=== PATIENT | male | born 1970 | race Caucasian/White ===

== ENCOUNTER 2020-03-12 19:08 | Inpatient (IN) ==
[2020-03-12] MEDS ORDERED: Naloxone 0.4 MG/ML INJ IVP PRN (21:28)
[2020-03-12] MEDS ORDERED: Artificial Tears SOLN 15 ML BOTTLE BOTH EYES PRN (21:38)
[2020-03-12] MEDS: Midazolam HCl 50 MG/100 ML IV.SOLN IVC SCH (21:45)
[2020-03-12] MEDS: Dexmedetomidine HCl 400 MCG/100 ML MLS IVC SCH ×2 (21:48→23:40)
[2020-03-12] MEDS ORDERED: Dextrose Gel 15 GM/37.5 ML TUBE PO PRN ×2 (22:04)
[2020-03-12] MEDS ORDERED: *HR* Dextrose 50 % in Water (Vial) 50 ML VIAL IVP PRN (22:04)
[2020-03-12] MEDS ORDERED: D5% in Water 1,000 ML IVC PRN (22:04)
[2020-03-12 22:07] LABS: ABG Base Excess 0 mEq/L (-2 to 3); ABG HCO3 28 mEq/L (21-27); ABG Oxygen Saturation 100 % (95-98); ABG PCO2 60 mmHg (35-45); ABG PH 7.28 pH Units (7.32-7.45); ABG PO2 386 mmHg (85-104); ABG TCO2 30 mEq/L (20-26); Blood Gas VT 550 cc
[2020-03-13] MEDS: FentaNYL (PF) 1,000 MCG/100 ML IV.SOLN IVC SCH ×4 (00:13→19:15)
[2020-03-13] MEDS: Artificial Tears SOLN 15 ML BOTTLE BOTH EYES SCH ×6 (00:15→19:57)
[2020-03-13] MEDS: Piperacillin/Tazobactam 3.375 GM in 0.9 % Sodium Chloride Mini Bag 100 ML IVPB SCH ×3 (00:15→16:18)
[2020-03-13] MEDS: *HR* Heparin 5,000 UNIT/ML VIAL SQ SCH ×3 (00:16→16:18)
[2020-03-13] MEDS: Midazolam HCl 50 MG/100 ML IV.SOLN IVC SCH ×6 (01:30→21:43)
[2020-03-13] MEDS: Dexmedetomidine HCl 400 MCG/100 ML MLS IVC SCH ×9 (02:03→22:08)
[2020-03-13 04:09] LABS: Basophils % 0.2 %; Eosinophils % 0.1 %; Hematocrit 38.8 % (37.5-50.1); Hemoglobin 12.2 g/dL (12.9-16.9); Immature Granulocytes % 0.4 % (0-4); Lymphocytes % 13.5 %; Mean Corpuscular HGB Conc 31.4 g/dL (31.6-35.5); Mean Corpuscular Hemoglobin 26.8 pg (28.0-33.3); Mean Corpuscular Volume 85.3 fL (83.0-100.0); Monocytes # 1.3 K/mcL (0.0-1.3); Monocytes % 8.6 %; Neutrophils # 11.4 K/mcL (1.6-8.9); Platelet Count 274 K/mcL (140-400); Red Blood Count 4.55 M/mcL (4.19-5.50); Red Cell Distribution Width 13.9 % (11.5-14.5); Segmented Neutrophils % 77.2 %; White Blood Count 14.8 K/mcL (4.3-11.1)
[2020-03-13 04:34] LABS: INR 1.2; Prothrombin Time 14.1 Seconds (9.4-12.1)
[2020-03-13 04:38] LABS: ABG Base Excess 1 mEq/L (-2 to 3); ABG HCO3 26 mEq/L (21-27); ABG Oxygen Saturation 97 % (95-98); ABG PCO2 43 mmHg (35-45); ABG PH 7.39 pH Units (7.32-7.45); ABG PO2 91 mmHg (85-104); ABG TCO2 28 mEq/L (20-26); Blood Gas VT 550 cc
[2020-03-13] MEDS: Chlorhexidine Rinse 15 ML MOUTHWASH MM SCH ×2 (07:54→19:57)
[2020-03-13] MEDS: Pantoprazole 40 MG VIAL IVP SCH (07:55)
[2020-03-13] MEDS: Norepinephrine 4 MG/254 ML IV.SOLN IVC SCH ×2 (13:13→19:32)
[2020-03-14] MEDS: Artificial Tears SOLN 15 ML BOTTLE BOTH EYES SCH ×7 (00:05→23:02)
[2020-03-14] MEDS: *HR* Heparin 5,000 UNIT/ML VIAL SQ SCH ×4 (00:05→23:02)
[2020-03-14] MEDS: Piperacillin/Tazobactam 3.375 GM in 0.9 % Sodium Chloride Mini Bag 100 ML IVPB SCH ×2 (00:06→07:18)
[2020-03-14] MEDS: FentaNYL (PF) 1,000 MCG/100 ML IV.SOLN IVC SCH ×2 (02:45→19:25)
[2020-03-14] MEDS: Dexmedetomidine HCl 400 MCG/100 ML MLS IVC SCH ×5 (02:46→20:38)
[2020-03-14 03:58] LABS: Basophils % 0.4 %; Eosinophils % 0.4 %; Hematocrit 39.8 % (37.5-50.1); Hemoglobin 12.5 g/dL (12.9-16.9); Immature Granulocytes % 0.3 % (0-4); Lymphocytes # 2.8 K/mcL (0.6-4.6); Lymphocytes % 29.3 %; Mean Corpuscular HGB Conc 31.4 g/dL (31.6-35.5); Mean Platelet Volume 9.1 fL (9.4-12.4); Monocytes % 9.9 %; Neutrophils # 5.7 K/mcL (1.6-8.9); Platelet Count 235 K/mcL (140-400); Red Blood Count 4.63 M/mcL (4.19-5.50); Red Cell Distribution Width 14.3 % (11.5-14.5); Segmented Neutrophils % 59.7 %; White Blood Count 9.6 K/mcL (4.3-11.1)
[2020-03-14 04:18] LABS: BUN/Creatinine Ratio 11 (6-26); Blood Urea Nitrogen 11 mg/dL (6-20); Calcium 8.6 mg/dL (8.6-10.3); Carbon Dioxide 25 mEq/L (23-29); Chloride 107 mEq/L (98-107); Glucose 127 mg/dL (70-105); Osmolality,Calculated 287 (280-300); Potassium 3.4 mEq/L (3.5-5.1); Sodium 138 mEq/L (136-145); eGFR For African Americans > 60 (> 60); eGFR For Non-African Americans > 60 (> 60)
[2020-03-14] MEDS: Midazolam HCl 50 MG/100 ML IV.SOLN IVC SCH (05:05)
[2020-03-14 05:20] LABS: ABG Base Excess 2 mEq/L (-2 to 3); ABG HCO3 26 mEq/L (21-27); ABG Oxygen Saturation 98 % (95-98); ABG PCO2 38 mmHg (35-45); ABG PH 7.44 pH Units (7.32-7.45); ABG PO2 95 mmHg (85-104); ABG TCO2 27 mEq/L (20-26); Blood Gas Modality ASSIST CONTROL; Blood Gas VT 550 cc
[2020-03-14] MEDS: Potassium Chloride 40 MEQ/200 ML BAG IVPB PRN (05:30)
[2020-03-14] MEDS: Chlorhexidine Rinse 15 ML MOUTHWASH MM SCH ×2 (07:18→19:33)
[2020-03-14] MEDS: Pantoprazole 40 MG VIAL IVP SCH (07:18)
[2020-03-14] MEDS ORDERED: Ringers Solution, Lactated 1,000 ML ONE (13:35)
[2020-03-14] MEDS ORDERED: Ringers Solution, Lactated 500 ML IVC ONE (13:40)
[2020-03-14] MEDS: Ampicillin/Sulbactam 3,000 MG in 0.9 % Sodium Chloride Mini Bag 100 ML IVPB SCH ×2 (17:59→23:02)
[2020-03-14] MEDS: Norepinephrine 4 MG/254 ML IV.SOLN IVC SCH (19:31)
[2020-03-15] MEDS: Dexmedetomidine HCl 400 MCG/100 ML MLS IVC SCH ×6 (01:22→23:47)
[2020-03-15] MEDS: FentaNYL (PF) 1,000 MCG/100 ML IV.SOLN IVC SCH ×2 (03:00→16:37)
[2020-03-15] MEDS: Artificial Tears SOLN 15 ML BOTTLE BOTH EYES SCH ×6 (03:29→23:08)
[2020-03-15 03:40] LABS: Basophils # 0.1 K/mcL (0.0-0.2); Basophils % 0.7 %; Eosinophils # 0.1 K/mcL (0.0-0.6); Eosinophils % 1.1 %; Hemoglobin 12.2 g/dL (12.9-16.9); Immature Granulocytes % 0.4 % (0-4); Mean Corpuscular HGB Conc 32.1 g/dL (31.6-35.5); Mean Corpuscular Hemoglobin 27.7 pg (28.0-33.3); Mean Corpuscular Volume 86.2 fL (83.0-100.0); Mean Platelet Volume 9.3 fL (9.4-12.4); Monocytes # 0.9 K/mcL (0.0-1.3); Monocytes % 11.7 %; Neutrophils # 4.6 K/mcL (1.6-8.9); Platelet Count 247 K/mcL (140-400); Red Blood Count 4.41 M/mcL (4.19-5.50); Segmented Neutrophils % 60.1 %; White Blood Count 7.6 K/mcL (4.3-11.1)
[2020-03-15 03:51] LABS: Potassium 3.4 mEq/L (3.5-5.1)
[2020-03-15] MEDS: Potassium Chloride 40 MEQ/200 ML BAG IVPB PRN (04:37)
[2020-03-15 04:42] LABS: ABG Base Excess 0 mEq/L (-2 to 3); ABG HCO3 24 mEq/L (21-27); ABG Oxygen Saturation 98 % (95-98); ABG PCO2 36 mmHg (35-45); ABG PH 7.43 pH Units (7.32-7.45); ABG PO2 95 mmHg (85-104); ABG TCO2 25 mEq/L (20-26); Blood Gas Modality ASSIST CONTROL; Blood Gas VT 550 cc
[2020-03-15 05:04] LABS: BUN/Creatinine Ratio 15 (6-26); Blood Urea Nitrogen 11 mg/dL (6-20); Carbon Dioxide 25 mEq/L (23-29); Chloride 107 mEq/L (98-107); Glucose 126 mg/dL (70-105); Osmolality,Calculated 285 (280-300); Potassium 3.5 mEq/L (3.5-5.1); Sodium 137 mEq/L (136-145); eGFR For African Americans > 60 (> 60); eGFR For Non-African Americans > 60 (> 60)
[2020-03-15] MEDS: Ampicillin/Sulbactam 3,000 MG in 0.9 % Sodium Chloride Mini Bag 100 ML IVPB SCH ×4 (06:26→23:07)
[2020-03-15] MEDS: *HR* Heparin 5,000 UNIT/ML VIAL SQ SCH ×3 (08:29→23:08)
[2020-03-15] MEDS: Pantoprazole 40 MG VIAL IVP SCH (08:29)
[2020-03-15] MEDS: Chlorhexidine Rinse 15 ML MOUTHWASH MM SCH ×2 (08:29→20:21)
[2020-03-15] MEDS: Norepinephrine 4 MG/254 ML IV.SOLN IVC SCH (19:24)
[2020-03-16] MEDS: Dexmedetomidine HCl 400 MCG/100 ML MLS IVC SCH ×6 (02:13→23:03)
[2020-03-16] MEDS: FentaNYL (PF) 1,000 MCG/100 ML IV.SOLN IVC SCH ×2 (03:05→13:00)
[2020-03-16] MEDS: Artificial Tears SOLN 15 ML BOTTLE BOTH EYES SCH ×7 (03:06→23:07)
[2020-03-16 03:48] LABS: Basophils % 0.4 %; Eosinophils # 0.1 K/mcL (0.0-0.6); Eosinophils % 1.1 %; Hematocrit 36.1 % (37.5-50.1); Hemoglobin 11.4 g/dL (12.9-16.9); Immature Granulocytes % 0.4 % (0-4); Lymphocytes # 2.6 K/mcL (0.6-4.6); Lymphocytes % 31.3 %; Mean Corpuscular HGB Conc 31.6 g/dL (31.6-35.5); Mean Corpuscular Hemoglobin 27.2 pg (28.0-33.3); Mean Corpuscular Volume 86.2 fL (83.0-100.0); Mean Platelet Volume 9.6 fL (9.4-12.4); Monocytes # 0.9 K/mcL (0.0-1.3); Monocytes % 10.4 %; Neutrophils # 4.7 K/mcL (1.6-8.9); Platelet Count 269 K/mcL (140-400); Red Blood Count 4.19 M/mcL (4.19-5.50); Red Cell Distribution Width 14.1 % (11.5-14.5); Segmented Neutrophils % 56.4 %; White Blood Count 8.4 K/mcL (4.3-11.1)
[2020-03-16 03:58] LABS: BUN/Creatinine Ratio 15 (6-26); Blood Urea Nitrogen 11 mg/dL (6-20); Calcium 8.2 mg/dL (8.6-10.3); Carbon Dioxide 23 mEq/L (23-29); Chloride 106 mEq/L (98-107); Glucose 178 mg/dL (70-105); Osmolality,Calculated 284 (280-300); Potassium 3.6 mEq/L (3.5-5.1); Sodium 135 mEq/L (136-145); eGFR For African Americans > 60 (> 60); eGFR For Non-African Americans > 60 (> 60)
[2020-03-16 04:19] LABS: ABG Base Excess -1 mEq/L (-2 to 3); ABG HCO3 24 mEq/L (21-27); ABG Oxygen Saturation 96 % (95-98); ABG PCO2 39 mmHg (35-45); ABG PO2 85 mmHg (85-104); ABG TCO2 25 mEq/L (20-26); Blood Gas Modality ASSIST CONTROL; Blood Gas VT 550 cc
[2020-03-16] MEDS: Ampicillin/Sulbactam 3,000 MG in 0.9 % Sodium Chloride Mini Bag 100 ML IVPB SCH (05:04)
[2020-03-16] MEDS: Potassium Chloride 40 MEQ/200 ML BAG IVPB PRN (05:06)
[2020-03-16] MEDS: Chlorhexidine Rinse 15 ML MOUTHWASH MM SCH ×2 (07:50→19:17)
[2020-03-16] MEDS: *HR* Heparin 5,000 UNIT/ML VIAL SQ SCH ×3 (07:50→23:03)
[2020-03-16] MEDS: Pantoprazole 40 MG VIAL IVP SCH (07:50)
[2020-03-16] MEDS ORDERED: Furosemide 40 MG/4 ML VIAL IVP ONE (16:21)
[2020-03-16] MEDS: Norepinephrine 4 MG/254 ML IV.SOLN IVC SCH (19:17)
[2020-03-17 03:23] LABS: Basophils # 0.1 K/mcL (0.0-0.2); Basophils % 0.5 %; Eosinophils # 0.2 K/mcL (0.0-0.6); Eosinophils % 1.6 %; Hematocrit 36.8 % (37.5-50.1); Hemoglobin 11.7 g/dL (12.9-16.9); Immature Granulocytes % 0.5 % (0-4); Lymphocytes # 3.2 K/mcL (0.6-4.6); Lymphocytes % 34.7 %; Mean Corpuscular HGB Conc 31.8 g/dL (31.6-35.5); Mean Corpuscular Hemoglobin 27.8 pg (28.0-33.3); Mean Corpuscular Volume 87.4 fL (83.0-100.0); Mean Platelet Volume 9.2 fL (9.4-12.4); Monocytes % 10.8 %; Neutrophils # 4.8 K/mcL (1.6-8.9); Platelet Count 247 K/mcL (140-400); Red Blood Count 4.21 M/mcL (4.19-5.50); Red Cell Distribution Width 13.9 % (11.5-14.5); Segmented Neutrophils % 51.9 %; White Blood Count 9.3 K/mcL (4.3-11.1)
[2020-03-17 04:49] LABS: BUN/Creatinine Ratio 14 (6-26); Blood Urea Nitrogen 9 mg/dL (6-20); Calcium 8.8 mg/dL (8.6-10.3); Carbon Dioxide 25 mEq/L (23-29); Chloride 105 mEq/L (98-107); Glucose 102 mg/dL (70-105); Magnesium 1.9 mg/dL (1.6-2.6); Osmolality,Calculated 283 (280-300); Potassium 3.6 mEq/L (3.5-5.1); Sodium 137 mEq/L (136-145); eGFR For African Americans > 60 (> 60); eGFR For Non-African Americans > 60 (> 60)
[2020-03-17] MEDS: Chlorhexidine Rinse 15 ML MOUTHWASH MM SCH (07:21)
[2020-03-17] MEDS: *HR* Heparin 5,000 UNIT/ML VIAL SQ SCH ×3 (07:22→23:21)
[2020-03-17] MEDS: Pantoprazole 40 MG VIAL IVP SCH (07:22)
[2020-03-17] MEDS: Artificial Tears SOLN 15 ML BOTTLE BOTH EYES SCH ×3 (07:22→15:20)
[2020-03-17] MEDS: *HR* Labetalol 20 MG/4 ML SYRINGE IVP PRN ×2 (09:06→17:02)
[2020-03-17] MEDS ORDERED: Potassium Chloride Elixir 20 MEQ/15 ML UDC PO ONE (10:50)
[2020-03-17] MEDS: lisinopriL 20 MG TABLET PO SCH (15:37)
[2020-03-17] MEDS ORDERED: Dextrose Gel 15 GM/37.5 ML TUBE PO PRN ×2 (17:12)
[2020-03-17] MEDS ORDERED: D5% in Water 1,000 ML IVC PRN (17:12)
[2020-03-17] MEDS ORDERED: Naloxone 0.4 MG/ML INJ IVP PRN (17:12)
[2020-03-17] MEDS ORDERED: *HR* Labetalol 20 MG/4 ML SYRINGE IVP PRN (17:12)
[2020-03-17] MEDS ORDERED: *HR* Dextrose 50 % in Water (Vial) 50 ML VIAL IVP PRN (17:12)
[2020-03-18] MEDS: *HR* LORazepam 1 MG TABLET PO PRN ×2 (03:38→11:58)
[2020-03-18 05:12] LABS: VBG Ionized Calcium 0.92 mmol/L (1.15-1.35)
[2020-03-18 05:19] LABS: Immature Granulocytes % 0.9 % (0-4)
[2020-03-18 05:21] LABS: Basophils # 0.1 K/mcL (0.0-0.2); Basophils % 0.7 %; Eosinophils # 0.2 K/mcL (0.0-0.6); Eosinophils % 1.8 %; Hematocrit 37.1 % (37.5-50.1); Hemoglobin 11.8 g/dL (12.9-16.9); Lymphocytes % 33.3 %; Mean Corpuscular HGB Conc 31.8 g/dL (31.6-35.5); Mean Corpuscular Hemoglobin 26.8 pg (28.0-33.3); Mean Corpuscular Volume 84.3 fL (83.0-100.0); Mean Platelet Volume 10.2 fL (9.4-12.4); Monocytes # 1.5 K/mcL (0.0-1.3); Monocytes % 12.8 %; Platelet Count 294 K/mcL (140-400); Red Cell Distribution Width 14.2 % (11.5-14.5); Segmented Neutrophils % 50.5 %; White Blood Count 11.9 K/mcL (4.3-11.1)
[2020-03-18 05:30] LABS: Alanine Aminotransferase 54 Units/L (7-52); Albumin 3.3 g/dL (3.5-5.7); Albumin/Globulin Ratio 0.9 (1.1-2.2); Alkaline Phosphatase 76 Units/L (34-104); Aspartate Amino Transferase 48 Units/L (13-39); BUN/Creatinine Ratio 18 (6-26); Bilirubin,Total 0.4 mg/dL (0.3-1.0); Blood Urea Nitrogen 11 mg/dL (6-20); Calcium 8.6 mg/dL (8.6-10.3); Carbon Dioxide 22 mEq/L (23-29); Chloride 107 mEq/L (98-107); Globulin 3.8 g/dL (2.4-3.5); Glucose 113 mg/dL (70-105); Osmolality,Calculated 284 (280-300); Phosphorous 2.9 mg/dL (2.7-4.5); Potassium 3.6 mEq/L (3.5-5.1); Sodium 137 mEq/L (136-145); Total Protein 7.1 g/dL (6.4-8.9); eGFR For African Americans > 60 (> 60); eGFR For Non-African Americans > 60 (> 60)
[2020-03-18 06:53] LABS: Platelet Estimate Normal (Normal)
[2020-03-18] MEDS: *HR* Heparin 5,000 UNIT/ML VIAL SQ SCH ×2 (08:41→17:43)
[2020-03-18] MEDS: lisinopriL 20 MG TABLET PO SCH (08:42)
[2020-03-18] MEDS ORDERED: Pantoprazole 40 MG VIAL IVP SCH (09:00)
[2020-03-18 12:57] VITALS: BP 150/90
== END 2020-03-18 18:44 | disposition home or self-care (01) | DRG 917 ==
LOC: ICNU → OBSVTOIN 21:13
PROVIDERS: ADMIT Pediatrics; ATTEND Pediatrics